=== PATIENT | male | born 1975 | race Caucasian/White ===

== ENCOUNTER 2019-08-26 08:41 | Outpatient (CLI) | payer OTHER, SELFPAY ==
--- NOTE | 2019-08-26 11:00 | NEURO_ITS ---
Patient Number: [id number] Impression: # Complains of right upper extremity pain at different points and with different movements of the hand. # No Carpal Tunnel Syndrome or ulnar neuropathy. # Normal needle/EMG exam. # Clinical correlation recommended. Nerve Conduction Studies Anti Sensory Summary Table Stim Site NR Peak (ms) P-T Amp (?V) Site1 Site2 Delta-P (ms) Dist (cm) Gerhard (m/s) Right Median Anti Sensory (2-3nd Digit) Wrist 3.0 45.6 Wrist 2-3nd Digit 3.0 14.0 47 Wrist 3.1 54.1 Wrist 2-3nd Digit 3.0 14.0 47 Right Radial Anti Sensory (Base 1st Digit) Wrist 2.2 35.6 Wrist Base 1st Digit 2.2 0.0 Right Ulnar Anti Sensory (5th Digit) Wrist 2.6 62.0 Wrist 5th Digit 2.6 14.0 54 Motor Summary Table Stim Site NR Onset (ms) O-P Amp (mV) Site1 Site2 Delta-0 (ms) Dist (cm) Gerhard (m/s) Right Median Motor (Abd Poll Brev) Wrist 3.5 5.8 Elbow Wrist 4.9 28.0 57 Elbow 8.4 5.5 Right Ulnar Motor (Abd Dig Minimi) Wrist 3.0 9.5 A Elbow Wrist 4.8 28.0 58 A Elbow 7.8 8.7 F Wave Studies NR F-Lat (ms) L-R F-Lat (ms) Right Median (Mrkrs) (Abd Poll Brev) 27.46 Right Ulnar (Mrkrs) (Abd Dig Min) 28.07 EMG Side Muscle Nerve Root Ins Act Fibs Amp Dur Recrt Comment Right 1stDorInt Ulnar C8-T1 Nml Nml Nml Nml Nml Right Ext Indicis Radial (Post Int) C7-8 Nml Nml Nml Nml Nml Right Ext Digitorum Radial (Post Int) C7-8 Nml Nml Nml Nml Nml Right BrachioRad Radial C5-6 Nml Nml Nml Nml Nml Right PronatorTeres Median C6-7 Nml Nml Nml Nml Nml Right Abd Poll Brev Median C8-T1 Nml Nml Nml Nml Nml Right Biceps Musculocut C5-6 Nml Nml Nml Nml Nml Right Triceps Radial C6-7-8 Nml Nml Nml Nml Nml MTDD
== END 2019-08-26 08:42 | disposition home or self-care (01) ==
LOC: ANHNEURO 08:43
PROVIDERS: PCP Family Medicine; Visit Provider Family Medicine
DX: M79.641 Pain in right hand (principal)
CPT/HCPCS: 95886; 95909

== ENCOUNTER → 2020-01-12 08:42 | Outpatient (CLI) | payer OTHER, SELFPAY ==
--- NOTE | ~2020-01-12 | XR_ITS ---
XR lumbar spine min 4V DATE: 01/12/2020 09:05 INDICATION: Low back pain TECHNIQUE: Standing AP, lateral and flexion and extension lateral and coned lateral lumbosacral views COMPARISON: None FINDINGS: The lumbar vertebrae are normally aligned. No fracture or bone destruction. The lumbar pedi cles are intact. There is minimal anterolisthesis at L4-5, stable in flexion, extension and neutral p osition. No instability on flexion or extension is demonstrated. There is moderately severe degenerative disc disease at L5-S1. The lumbar interspaces are well preser eze. The sacroiliac joints appear normal. IMPRESSION: Moderately severe degenerative disc disease at L5-S1 Minimal anterolisthesis at L4-5 Reviewed, dictated and finalized at location A.
== END ==
PROVIDERS: PCP Family Medicine; Visit Provider Nurse Practitioner Family
DX: M54.5 Low back pain (principal); M51.37 Other intervertebral disc degeneration, lumbosacral region; M43.17 Spondylolisthesis, lumbosacral region
CPT/HCPCS: 72110